=== PATIENT | female | born 1965 | race Caucasian/White ===

== ENCOUNTER 2018-07-09 05:26 | Day surgery (SDC) | payer OTHER ==
[2018-07-09] MEDS ORDERED: VASOPRESSIN 20 UNITS INJ (06:52)
[2018-07-09] MEDS ORDERED: SUCCINYLCHOLINE CHLORIDE 100 MG/5 ML SYG IV (07:34)
[2018-07-09] MEDS ORDERED: LIDOCAINE 2% (SDV) 5 ML INJ (07:34)
[2018-07-09] MEDS ORDERED: PROPOFOL 20 ML (07:34)
[2018-07-09] MEDS ORDERED: CEFAZOLIN 1 GM INJ (07:34)
[2018-07-09] MEDS ORDERED: ONDANSETRON 4 MG INJ (07:41)
[2018-07-09] MEDS ORDERED: DEXAMETHASONE 4 MG/ML 5 ML INJ (07:41)
[2018-07-09] MEDS ORDERED: METOCLOPRAMIDE 10 MG INJ (07:41)
[2018-07-09] MEDS ORDERED: FENTAnyl 50 MCG/ML VIAL (07:44)
[2018-07-09] MEDS: LACTATED RINGER'S 1,000 ML IV (08:10)
[2018-07-09] MEDS ORDERED: OXYCODONE/ACETAMINOPHEN (5/325) TAB PO ×2 (08:30)
[2018-07-09] MEDS ORDERED: ONDANSETRON 4 MG INJ IV (08:30)
[2018-07-09] MEDS ORDERED: FENTAnyl 50 MCG/ML VIAL IV ×3 (08:30)
[2018-07-09] MEDS ORDERED: ACETAMINOPHEN 325 MG TAB PO (08:30)
[2018-07-09] MEDS ORDERED: MEPERIDINE 25 MG INJ IV (08:30)
== END 2018-07-09 09:40 | disposition home or self-care (01) ==
LOC: SDS 05:26
DX: N92.0 Excessive and frequent menstruation with regular cycle (principal); N95.0 Postmenopausal bleeding; R93.89 Abnormal findings on diagnostic imaging of other specified body structures
CPT/HCPCS: 58558; 84702; 86850; 86900; 86901; 88305